=== PATIENT | male | born 1980 | race Two or more races ===

== ENCOUNTER 2018-04-17 10:44 | Day surgery (SDC) | payer MEDICAID ==
--- NOTE | 2018-04-17 06:39 | PDHPUP ---
History & Physical Update H&P update statement: This history and physical update is based on an assessment of the patient which was completed after admission or registration (within 24 hours), but prior to the surgery/procedure. H&P update: no change in patient's condition since H&P completed
[2018-04-17] MEDS ORDERED: EPINEPHrine 30 MG/30 ML MDV (0.1 MG/0.1 ML) ONE (10:54)
[2018-04-17] MEDS ORDERED: BUPIVACAINE/EPI 0.5% 30 ML SDV ONE (10:54)
[2018-04-17] MEDS ORDERED: ceFAZolin 2 GM/DEXTROSE 100 ML IV ONE (11:09)
[2018-04-17] MEDS ORDERED: ACETAMINOPHEN 500 MG TAB PO ONE (11:09)
[2018-04-17] MEDS ORDERED: LR 1,000 ML IV ONE (11:09)
[2018-04-17] MEDS ORDERED: LR 1,000 ML IV SCH (11:09)
[2018-04-17] MEDS ORDERED: MIDAZOLAM 2 MG/2 ML VIAL IVP ONE (11:48)
[2018-04-17] MEDS ORDERED: ALBUTEROL 3 ML DEYVIAL IH PRN (11:48)
[2018-04-17] MEDS ORDERED: NALOXONE HCL 0.4 MG/ML INJ IVP PRN (11:48)
[2018-04-17] MEDS ORDERED: ONDANSETRON 4 MG/2 ML VIAL IVP PRN (11:48)
[2018-04-17] MEDS ORDERED: ACETAMINOPHEN 500 MG TAB PO PRN (11:48)
[2018-04-17] MEDS ORDERED: HYDROmorphONE/DILAUDID 1 MG/ML INJ IVP PRN (11:48)
[2018-04-17] MEDS ORDERED: DEXAMETHASONE 4 MG/ML VIAL IVP PRN (11:48)
--- NOTE | 2018-04-17 11:49 | PDANEPAE ---
ANE History of Present Illness R ACL ANE Past Medical History - Cardiovascular History Hx Hypertension: Yes Cardiovascular History Comment: Has had high blood pressures since knee injury. Was told was R/T pain. - Pulmonary History Hx COPD: No Hx Asthma/Reactive Airway Disease: No Hx Recent Upper Respiratory Infection: No Hx Oxygen in Use at Home: No Hx Sleep Apnea: No Sleep Apnea Screening Result - Last Documented: Negative - Neurologic History Hx Cerebrovascular Accident: No Hx Seizures: No Hx Dementia: No - Endocrine History Hx Diabetes: No - Renal History Hx Renal Disorders: No - Liver History Hx Hepatic Disorders: No - Neurological & Psychiatric Hx Hx Neurological and Psychiatric Disorders: No - Cancer History Hx Cancer: No - Congenital Disorder History Hx Congenital Disorders: No - GI History Hx Gastrointestinal Disorders: No - Other Health History Other Health History: Eczema in the past, no recent outbreaks - Chronic Pain History Chronic Pain: Yes (lower back) - Surgical History Prior Surgeries: none ANE Review of Systems Review of Systems: - Exercise capacity METS (RN): 4 METS ANE Patient History - Allergies Allergies/Adverse Reactions: hydrocodone Allergy (Verified 04/07/18 16:10) Rash - Home Medications Home Medications: NK [No Known Home Meds] 04/17/18 [Last Taken Unknown] - NPO status NPO Since - Liquids (Date): 04/17/18 NPO Since - Liquids (Time): 08:30 NPO Since - Solids (Date): 04/16/18 NPO Since - Solids (Time): 20:00 - Smoking Hx Smoking Status: Never smoked - Family Anes Hx Family Hx Anesthesia Complications: none ANE Labs/Vital Signs - Vital Signs Blood Pressure: 117/79 Heart Rate: 117 Respiratory Rate: 18 O2 Sat (%): 95 Height: 180.34 cm Weight: 99.79 kg ANE Physical Exam - Airway Neck exam: FROM Mallampati Score: Class 2 - Pulmonary Pulmonary: clear to auscultation - Cardiovascular Cardiovascular: regular rate and rhythym - ASA Status ASA Status: II ANE Anesthesia Plan Anesthesia Plan: general endotracheal anesthesia
[2018-04-17] MEDS ORDERED: PROPOFOL 200 MG/20 ML VIAL ONE ×2 (12:29→13:03)
[2018-04-17] MEDS ORDERED: HYDROmorphONE/DILAUDID 2 MG/ML INJ ONE ×2 (12:29→14:35)
[2018-04-17] MEDS ORDERED: DEXAMETHASONE 4 MG/ML VIAL ONE (12:42)
[2018-04-17] MEDS ORDERED: ONDANSETRON 4 MG/2 ML VIAL ONE (12:42)
[2018-04-17] MEDS ORDERED: oxyCODONE IR 5 MG TAB PO PRN (14:03)
--- NOTE | 2018-04-17 14:04 | POSTOPPROG ---
Post Op Note Date of Operation: 04/17/18 Surgeon: Juancarlos Sy Insect Control Inspector: felipa Anesthesiologist: tong Anesthesia: Spinal Pre-op Diagnosis: right knee acl and lat meniscus tear Post-op Diagnosis: same Indication: same Procedure: right knee acl recon and partial lat menisectomy Inf/Abcess present in the surg proc area at time of surgery?: No Depth: Deep Incisional (Fascial) EBL: 50-100
--- NOTE | 2018-04-17 14:15 | POSTANESTH ---
Post Anesthetic Evaluation Cardiovascular Status: Normal, Stable Respiratory Status: Normal, Stable Level of Consciousness/Mental Status: Mildly Sleepy, Arousable Pain Control: Adequate, Prn Tx Ordered Nausea/Vomiting Control: Adequate, Prn Tx Ordered Complications Possibly Related to Anesthesia: None Noted
[2018-04-17] MEDS ORDERED: fentaNYL 100 MCG/2 ML INJ ONE (14:34)
[2018-04-17] MEDS: fentaNYL 100 MCG/2 ML INJ IVP PRN ×2 (14:37→14:42)
[2018-04-17] MEDS ORDERED: oxyCODONE IR 5 MG TAB ONE (15:01)
[2018-04-17 15:48] VITALS: BP 117/81
--- NOTE | 2018-04-19 14:37 | GOP ---
DATE OF OPERATION: 04/17/2018 SURGEON: Juancarlos Sy MD HAM STRINGER: Josfe Santos, STOCK PLAN ADMINISTRATOR, TELESALES SUPERVISOR, recreation assistant was a medical necessity for the entirety of the case. PREOPERATIVE DIAGNOSIS: Right knee anterior cruciate ligament disruption and lateral meniscus tear. POSTOPERATIVE DIAGNOSIS: Right knee anterior cruciate ligament disruption and lateral meniscus tear. PROCEDURE PERFORMED: 1. Right knee anterior cruciate ligament reconstruction with hybrid allograft and hamstring tendon. 2. Partial lateral meniscectomy. 3. Tendon graft harvest from a distance. FINDINGS: SPECIMENS: None. INDICATIONS: The patient is a 38-year-old gentleman who sustained a disruption of his ACL and latera l meniscus in an injury. Given his age and instability, I have recommended surgical intervention wit h partial meniscectomy versus repair and ACL reconstruction. We discussed a hybrid graft for his ACL graft and he wished to proceed. Appropriate consent was signed and placed in patient's chart. DESCRIPTION OF PROCEDURE: The patient was identified in the preanesthesia area. The right knee verna rly demarcated as operative site with indelible marker. He was given 2 g of Ancef intravenously in r oute to the operative suite. In the OR, general endotracheal anesthesia was administered. Attention was turned to the right knee which was sterilely prepped and draped in usual fashion. A tourniquet was applied to the upper thigh. The limb was then sterilely prepped and draped in usual fashion. Ap propriate time-out for the procedure was carried out. The limb was exsanguinated with an Esmarch ban dage. Tourniquet inflated to 275 mmHg. Standard arthroscopic portal sites were created across the superomedial, inferomedial, inferolateral aspect of the knee and diagnostic arthroscopy ensued. The suprapatellar pouch demonstrated no loose or foreign debris. The articular surface of the patella and trochlea were intact without focal chond romalacia. Medial lateral gutters were free of any loose or foreign debris. The medial compartment was entered. There was a minimal chondromalacia over the medial femoral condy le. Medial meniscus was stable, intact to gentle probing. The lateral tibia was intact to gentle pr obing as well. The intercondylar notch was entered. The ACL was grossly disrupted. The lateral compartment was entered. There was a complex radial horizontal tear through the posterio r half of the lateral meniscus. This was deemed irreparable given the extensive fraying. This was d ebrided with an arthroscopic shaver to a clean and stable edge. All loose particulate debris was jadon cuated free and approximately 40% of the posterior half of the lateral meniscus was debrided, includi ng incarcerated fragment posterior to the ACL. Attention was then turned to the intercondylar notch. All remnants of the ACL were sharply excised. A small notchplasty was performed. An anterior medial incision were made over the tibia. Thick sub cutaneous flaps were elevated. The sartorius fascia was opened in the origin of its fibers and the s emitendinosus tendon identified and ligated with a FiberLoop suture and stripped into the proximal mu scular belly. This was prepared on the back table in standard fashion with preparation of a concomit ant allograft. These 2 tendons were draped over an ACL tight-rope button. Concomitantly, the notch plasty was performed within the knee. All loose particulate debris was evacuated. Using Arthrex out side-inside guide and a flip cutter, a 20 mm tunnel was made over the posterior lateral wall of the f emur. A tibial tunnel was made 1 cm diameter over a guide pin. All loose debris was evacuated free and suture was drawn in antegrade fashion using the tibial surface. A graft was draped in the midpoi nt and drawn up through the lateral cortex of the femur. The button was then flipped. The graft was placed under tension and drawn into the femoral tunnel. Each limb of the graft was placed under ten catrachito and taken to flexion, extension across the knee and secured with an 11 x 35 mm BioComposite scre w across the tibia under compression. The knee was evacuated and all loose particulate debris was cl eared free. The excess graft across the anterior surface of the tibia. The wounds were i rrigated, closed in layers using 0 Vicryl, 2-0 Monocryl, 4-0 nylon. Sterile dressing was applied aft er instillation of the incision sites with 20 cc of 0.5% Marcaine. This was followed by a Cryo/Cuff and knee brace. The patient was awakened, extubated, and taken to recovery room in good stable condi tion. TOTAL TOURNIQUET TIME: 55 minutes. COMPLICATIONS: None. IMPLANTS: As above. DISPOSITION: To the recovery room, then home. He is weightbearing as tolerated. Range of motion as tolerated. When he is weightbearing, the brace needs to be locked in extension for the first 2 week s. /[id number]/MODL
== END 2018-04-17 18:35 | disposition home or self-care (01) ==
LOC: FSGY 10:44
PROVIDERS: ATTEND Orthopaedic Surgery
PROC: 0MQN4ZZ Repair Right Knee Bursa and Ligament, Percutaneous Endoscopic Approach (ICD-10-PCS; principal; 2018-04-17 12:30)
PROC: 0MBN0ZZ Excision of Right Knee Bursa and Ligament, Open Approach (ICD-10-PCS; principal; 2018-04-17 12:30)
DX: S83.511A Sprain of anterior cruciate ligament of right knee, initial encounter (principal); S83.241A Other tear of medial meniscus, current injury, right knee, initial encounter; Y93.9 Activity, unspecified; I10 Essential (primary) hypertension
CPT/HCPCS: C1713; C1762; J0171; J0690; J1100; J1170; J2250; J2405; J2704; J3010

== ENCOUNTER → 2018-10-15 | Outpatient (CLI) | payer MEDICAID | LOC: BMCIMAGING 07:50 | PROVIDERS: ATTEND Orthopaedic Surgery | DX: Z09 Encounter for follow-up examination after completed treatment for conditions other than malignant neoplasm (principal) ==